=== PATIENT | female | born 1990 | race Caucasian/White ===

== ENCOUNTER 2017-03-29 05:08 | Inpatient (IN) | payer MEDICAID ==
[2017-03-29] MEDS ORDERED: Terbutaline 1 MG/ML SDV SUBCUT PRN (05:17)
[2017-03-29] MEDS ORDERED: Carboprost Tromethamine 250 MCG/1 ML Amp IM PRN (05:17)
[2017-03-29] MEDS ORDERED: Nalbuphine 10 MG/1 ML Vial IVPUSH PRN (05:17)
[2017-03-29] MEDS ORDERED: Sodium Chloride 0.9% 10 ML Syringe FLUSH PRN (05:17)
[2017-03-29] MEDS ORDERED: Butorphanol 1 MG/ML SDV IVPUSH PRN (05:17)
[2017-03-29] MEDS ORDERED: Water For Irrigation,Sterile 1,000 ML Container IRR PRN (05:17)
[2017-03-29] MEDS ORDERED: Sodium Chloride 0.9% 2.5 ML Syringe FLUSH PRN (05:17)
[2017-03-29] MEDS ORDERED: Misoprostol 200 MCG Tab PO PRN (05:17)
[2017-03-29] MEDS ORDERED: Methylergonovine 0.2 MG/1 ML Amp IM PRN (05:17)
[2017-03-29] MEDS ORDERED: Lidocaine 1% 50 ML MDV INJECT PRN (05:17)
[2017-03-29] MEDS ORDERED: Misoprostol 25 MCG (1/4 of 100 MCG) Tab VAG PRN ×2 (05:17→06:12)
[2017-03-29] MEDS ORDERED: Oxytocin/0.9 % Sodium Chloride 30 UNIT/500 ML BAG IV SCH ×2 (05:30)
[2017-03-29] MEDS ORDERED: Misoprostol 25 MCG (1/4 of 100 MCG) Tab VAG SCH (05:30)
[2017-03-29] MEDS: Lactated Ringers 1,000 ML IV SCH ×3 (05:37→14:00)
[2017-03-29] MEDS ORDERED: fentaNYL 100 MCG/2 ML SDV ONE (13:16)
[2017-03-29] MEDS ORDERED: Ropivacaine HCl/PF 100 ML ONE (13:17)
[2017-03-29] MEDS ORDERED: Ropivacaine 0.2% 2 MG/ML 20 ML SDV ONE (13:17)
[2017-03-29] MEDS ORDERED: oxyCODONE 5 MG Tab PO PRN (17:37)
[2017-03-29] MEDS ORDERED: Witch Hazel Medicated Pads 40/Jar TOP PRN (17:37)
[2017-03-29] MEDS ORDERED: Docusate Sodium 100 MG Cap PO PRN (17:37)
[2017-03-29] MEDS ORDERED: Acetaminophen 500 MG Tab PO PRN ×2 (17:37)
[2017-03-29] MEDS ORDERED: Benzocaine/Menthol 20%-0.5% Spray 78 GM Cannister TOP PRN (17:37)
[2017-03-29] MEDS ORDERED: Bisacodyl 10 MG Supp RECTAL PRN (17:37)
[2017-03-29] MEDS ORDERED: Ibuprofen 400 MG Tab PO PRN (17:37)
[2017-03-29] MEDS ORDERED: Lanolin 100% Cream 7 GM Tube TOP PRN (17:37)
--- NOTE | 2017-03-29 23:08 | OR ---
SURGEON: JOSE MENDES DATE OF PROCEDURE: 03/29/2017 PREOPERATIVE DIAGNOSES: 1. A 26-year-old G3, P2-0-0-2 at 38 weeks 6 days, admitted for induction of labor secondary to GDMA2 and polyhydramnios. 2. Group B streptococcus negative. POSTOPERATIVE DIAGNOSES: 1. Spontaneous vaginal delivery at 38 weeks 6 days. 2. GDMA2. 3. Polyhydramnios. 4. Suspected placental abruption. ESTIMATED BLOOD LOSS: 400. ANESTHESIA: Epidural. FINDINGS: A live female delivered at 1658 hours. score 8 and 9, weight was 3600g. There was true nuchal cord around the neck and also a true knot. There was a lot of clot with the placenta suspicious of placental abruption. EBL was 400ml. There was a left labial laceration noted also. INDICATIONS: The patient is a 26-year-old G3, P2-0-0-2 at 38 weeks 6 days, who was admitted for induction of labor secondary to GDM with polyhydramnios. The patient with GDMA2 on 2.5 mg of glyburide. The patient was admitted for induction of labor. She was 3, 70, -2. She received Cytotec. After Cytotec, she was started on Pitocin. She made change to 4 cm dilated, and then changed to FD/+2 .She had a normal labor course.She had majorly category 1 heart tracing throughout the intrapartum course. DESCRIPTION OF PROCEDURE: With the patient being fully dilated, the patient was encouraged to push. She pushed for about 10 minutes. She delivered the head, subsequently by the anterior and posterior shoulder. There was cord noted around the neck and a true knot. The baby was delivered and the cord was reduced. The cord blood gases were obtained. The cord was clamped and cut. The placenta was then delivered via controlled cord traction, there was moderate amount of blood and clots noted after the delivery of the placenta. The infant was dried on the mother's abdomen and also suctioned. The perineum was then inspected and noted to have a left labial tear incision, which was repaired. Pitocin was started and manual massage was done, and bleeding was controlled. After the repair of the labial laceration, hemostasis was noted. All instrument and pad count were correct x2. SHARLA / [place] /[id number] CHRISTINE
[2017-03-30] MEDS: Ibuprofen 800 MG Tab PO PRN ×2 (03:22→11:25)
--- NOTE | 2017-03-30 08:45 | PCM.PNPP ---
- General Info Date of Service: 03/30/17 Admission Dx/Problem (Free Text): 26 yo P3 s/p PPD1 , suspected placenta abruption,GDMA2 on glyburide Subjective Update: Denies any complains minimal lochia . Drop in Hematocrit to 26 today , vital signs stable , asymptomatic Functional Status: Reports: Pain Controlled, Tolerating Diet, Ambulating, Urinating - Review of Systems General: Reports: No Symptoms HEENT: Reports: No Symptoms Pulmonary: Reports: No Symptoms Cardiovascular: Reports: No Symptoms Gastrointestinal: Reports: No Symptoms Genitourinary: Reports: No Symptoms Musculoskeletal: Reports: No Symptoms Skin: Reports: No Symptoms Neurological: Reports: No Symptoms - General Info Date of Service: 03/30/17 - Patient Data Vital Signs - Most Recent: Last Vital Signs Temp 36.8 C 03/30/17 04:00 Pulse 64 03/29/17 20:05 Resp 16 03/30/17 04:00 BP 119/85 03/30/17 04:00 Pulse Ox 98 03/30/17 04:00 Weight - Most Recent: 74.389 kg I&O - Last 24 Hours: Intake & Output 03/29/17 03/30/17 03/30/17 22:59 06:59 14:59 Output Total 350 Balance -350 Lab Results - Last 24 Hours: Laboratory Results - last 24 hr 03/29/17 03/29/17 03/30/17 Range/Units 07:56 10:12 05:03 Hgb 8.9 L (12.0-16.0) g/dL Hct 26.8 L (36.0-46.0) % POC Glucose 79 79 (60-110) mg/dL Med Orders - Current: Current Medications Acetaminophen (Tylenol Extra Strength) 500 mg PO Q4H PRN PRN Reason: Pain Acetaminophen (Tylenol Extra Strength) 1,000 mg PO Q4H PRN PRN Reason: Pain Benzocaine/Menthol (Dermoplast Pain Relief 20%-0.5% Mcroberts) 78 gm TOP ASDIRECTED PRN PRN Reason: Perineal Comfort Measure Last Admin: 03/29/17 20:54 Dose: 1 applic Bisacodyl (Dulcolax) 10 mg RECTAL .ONCE PRN PRN Reason: Constipation Butorphanol Tartrate (Stadol) 1 mg IVPUSH ASDIRECTED PRN PRN Reason: Pain Last Admin: 03/29/17 10:44 Dose: 1 mg Carboprost Tromethamine (Hemabate Ds) 250 mcg IM ASDIRECTED PRN PRN Reason: Post Hemorrhage Docusate Sodium (Colace) 100 mg PO BID PRN PRN Reason: Constipation Emollient Ointment (Lansinoh Hpa) 0 gm TOP ASDIRECTED PRN PRN Reason: Sore Nipples Last Admin: 03/29/17 20:57 Dose: 1 applic Lactated Ringer's (Ringers, Lactated) 1,000 mls @ 150 mls/hr IV ASDIRECTED COLE Last Admin: 03/29/17 14:00 Dose: 150 mls/hr Oxytocin/Sodium Chloride (Oxytocin 30 Unit/500 Ml-Ns) 30 unit in 500 mls @ 999 mls/hr IV ASDIRECTED COLE Oxytocin/Sodium Chloride (Oxytocin 30 Unit/500 Ml-Ns) 30 unit in 500 mls @ 2 mls/hr IV TITRATE COLE; 2 MUNITS/MIN PRN Reason: Protocol Last Titration: 03/29/17 17:15 Dose: 250 munits/min, 250 mls/hr Ibuprofen (Motrin) 400 mg PO Q4H PRN PRN Reason: Pain Ibuprofen (Motrin) 800 mg PO Q6H PRN PRN Reason: Pain Last Admin: 03/30/17 03:22 Dose: 800 mg Lidocaine HCl (Xylocaine 1%) 50 ml INJECT .ONCE PRN PRN Reason: Laceration repair Methylergonovine Maleate (Methergine) 0.2 mg IM ASDIRECTED PRN PRN Reason: Post Hemorrhage Misoprostol (Cytotec) 200 mcg PO .ONCE PRN PRN Reason: Post Hemorrhage Misoprostol (Cytotec) 25 mcg VAG .ONCE COLE Last Admin: 03/29/17 06:30 Dose: 25 mcg Misoprostol (Cytotec) 25 mcg VAG Q6H PRN PRN Reason: Cervical Ripening Nalbuphine HCl (Nubain) 10 mg IVPUSH ASDIRECTED PRN PRN Reason: Pain (severe 7-10) Oxycodone HCl (Oxycodone) 5 mg PO Q2H PRN PRN Reason: Pain Sodium Chloride (Saline Flush) 10 ml FLUSH ASDIRECTED PRN PRN Reason: Keep Vein Open Sodium Chloride (Saline Flush) 2.5 ml FLUSH ASDIRECTED PRN PRN Reason: Keep Vein Open Sterile Water (Sterile Water For Irrigation) 1,000 ml IRR ASDIRECTED PRN PRN Reason: delivery Last Admin: 03/29/17 17:29 Dose: 1,000 ml Terbutaline Sulfate (Brethine) 0.25 mg SUBCUT ASDIRECTED PRN PRN Reason: Tacysystole Witch Deanna (Tucks) 1 pad TOP ASDIRECTED PRN PRN Reason: comfort care Last Admin: 03/29/17 20:54 Dose: 1 applic Discontinued Medications Fentanyl (Sublimaze) Confirm Administered Dose 100 mcg .ROUTE .STK-MED ONE Stop: 03/29/17 13:17 Ropivacaine (Naropin 0.2%) Confirm Administered Dose 100 mls @ as directed .ROUTE .STK-MED ONE Stop: 03/29/17 13:18 Misoprostol (Cytotec) 25 mcg VAG Q4H PRN PRN Reason: Cervical Ripening Ropivacaine (Naropin 0.2%) Confirm Administered Dose 20 ml .ROUTE .STK-MED ONE Stop: 03/29/17 13:18 - Interaction Support Person: Significant Other - Recovery Exam Fundal Tone: Firm Fundal Level: At Umbilicus Fundal Placement: Midline Lochia Amount: Small Lochia Color: Rubra/Red Perineum Description: Edematous Episiotomy/Laceration: Approximated Bladder Status: Nonpalpable Urinary Elimination: Not Voiding - Exam General: Alert, Oriented HEENT: Pupils Equal, Pupils Reactive Neck: Supple Lungs: Clear to Auscultation Cardiovascular: Regular Rate, Regular Rhythm GI/Abdominal Exam: Normal Bowel Sounds Extremities: Normal Inspection Skin: Warm - Problem List & Annotations (1) Vaginal delivery SNOMED Code(s): 304028256 Code(s): O80 - ENCOUNTER FOR FULL-TERM UNCOMPLICATED DELIVERY Status: Acute Current Visit: Yes - Problem List Review Problem List Initiated/Reviewed/Updated: Yes - My Orders Last 24 Hours: My Active Orders 03/29/17 17:37 Patient Status [ADT] Routine May Shower [RC] ASDIRECTED Up ad Jesi [RC] ASDIRECTED Vital Signs [RC] PER UNIT ROUTINE Acetaminophen [Tylenol Extra Strength] 1,000 mg PO Q4H PRN Acetaminophen [Tylenol Extra Strength] 500 mg PO Q4H PRN Benzocaine/Menthol [Dermoplast Pain Relief 20%-0.5% Mcroberts] 78 gm TOP ASDIRECTED PRN Bisacodyl [Dulcolax] 10 mg RECTAL .ONCE PRN Docusate Sodium [Colace] 100 mg PO BID PRN Ibuprofen [Motrin] 400 mg PO Q4H PRN Ibuprofen [Motrin] 800 mg PO Q6H PRN Lanolin [Lansinoh HPA] See Dose Instructions TOP ASDIRECTED PRN Witch Deanna [Tucks] 1 pad TOP ASDIRECTED PRN oxyCODONE 5 mg PO Q2H PRN Assess Lochia [WOMSER] Per Unit Routine Assess Uterine Involution [WOMSER] Per Unit Routine Peripheral IV Discontinue [OM.PC] Routine 03/30/17 Breakfast Regular Diet [DIET] - Assessment Assessment:: 26yo P3 PPD 1 , Aneamia , suspected abruption , Minimal lochia - Plan Plan:: Pain control as needed PNV and [place] Call [facility] if heavy vagina bleeding Fever > 101 BP check in 3-5 days visit in 6 weeks
== END 2017-03-30 20:35 | disposition home or self-care (01) | DRG 774 ==
LOC: MW.OBCHECK 05:08 → MW.OB 05:11 → MW.OBCHECK 05:17 → MW.OB 05:17 → OBSVTOIN 17:37 → MW.OB 19:00
PROVIDERS: ADMIT Obstetrics & Gynecology; ATTEND Obstetrics & Gynecology
PROC: 10E0XZZ Delivery of Products of Conception, External Approach (ICD-10-PCS; principal; 2017-03-29)
PROC: 0HQ9XZZ Repair Perineum Skin, External Approach (ICD-10-PCS; 2017-03-29)
PROC: 3E0P7VZ Introduction of Hormone into Female Reproductive, Via Natural or Artificial Opening (ICD-10-PCS; 2017-03-29)
DX: O24.425 Gestational diabetes mellitus in childbirth, controlled by oral hypoglycemic drugs (principal); O45.93 Premature separation of placenta, unspecified, third trimester; O40.3XX0 Polyhydramnios, third trimester, not applicable or unspecified; O69.1XX0 Labor and delivery complicated by cord around neck, with compression, not applicable or unspecified; O70.0 First degree perineal laceration during delivery; Z3A.38 38 weeks gestation of pregnancy; Z37.0 Single live birth
CPT/HCPCS: 36415; 59025; 59409; 82962; 85014; 85018; 85027; 86850; 86900; 86901; 88307; A9270-GY; J0595; J2590; J7120